=== PATIENT | female | born 2000 ===

== ENCOUNTER 2024-03-06 10:11 | Day surgery (SDC) | payer BC, OTHER ==
[~2024-03-06] VITALS: Ht 162.6 cm; Wt 67.5 kg
[~2024-03-06 10:11] MED LIST: Lactated Ringer's 1,000 ML IV ONE
[2024-03-06] MEDS ORDERED: ONDA4 (10:33)
[2024-03-06] MEDS ORDERED: PROM25 (10:33)
[2024-03-06] MEDS ORDERED: ALBU90OI (10:33)
[2024-03-06] MEDS ORDERED: Glycopyrrolate 0.2 MG/ML 1MLVIAL ONE (11:07)
[2024-03-06] MEDS ORDERED: Lidocaine HCl 4% 5 ML SDA ONE (11:07)
[2024-03-06] MEDS ORDERED: propofoL 50 ML IV ONE ×2 (11:15→12:07)
--- NOTE | 2024-03-06 11:19 | NUR ---
03/06/24 1119 Soco Gibson MANUALLY INPUT IN 4% LIDOCAINE INTO EMAR DUE TO GLASS VIAL BEING IN SHARPS.
[2024-03-06] MEDS ORDERED: Lactated Ringer's 1,000 ML IV ONE (11:21)
[2024-03-06] MEDS ORDERED: Midazolam HCL 1 MG/ML 5MLVIAL ONE (11:28)
== END 2024-03-06 13:03 | disposition home or self-care (01) ==
LOC: ORSCSDS 10:11
PROVIDERS: Specialist
PROC: 0DBE8ZX Excision of Large Intestine, Via Natural or Artificial Opening Endoscopic, Diagnostic (ICD-10-PCS; principal; 2024-03-06 11:15)
PROC: 0DB68ZX Excision of Stomach, Via Natural or Artificial Opening Endoscopic, Diagnostic (ICD-10-PCS; principal; 2024-03-06 11:15)
PROC: 0DB98ZX Excision of Duodenum, Via Natural or Artificial Opening Endoscopic, Diagnostic (ICD-10-PCS; principal; 2024-03-06 11:15)
DX: K92.1 Melena (principal); R93.3 Abnormal findings on diagnostic imaging of other parts of digestive tract; K64.8 Other hemorrhoids; K44.9 Diaphragmatic hernia without obstruction or gangrene; R11.2 Nausea with vomiting, unspecified; R10.32 Left lower quadrant pain; R19.7 Diarrhea, unspecified; R63.4 Abnormal weight loss; Z68.25 Body mass index [BMI] 25.0-25.9, adult; Z87.891 Personal history of nicotine dependence; F31.9 Bipolar disorder, unspecified; M32.9 Systemic lupus erythematosus, unspecified; M06.9 Rheumatoid arthritis, unspecified
CPT/HCPCS: 88305; 88342; J2001; J2003; J2250; J2704; J7120